=== PATIENT | female | born 1960 | race Asian ===

== ENCOUNTER 2018-11-13 06:52 | Day surgery (SDC) | payer BC ==
[2018-11-13] MEDS ORDERED: MIDAZOLAM 1 MG/ML 2 ML INJ ×2 (08:50)
[2018-11-13] MEDS ORDERED: FENTAnyl 50 MCG/ML VIAL (08:50)
== END 2018-11-13 13:25 | disposition home or self-care (01) ==
LOC: GIL 06:52
DX: Z12.11 Encounter for screening for malignant neoplasm of colon (principal); K64.8 Other hemorrhoids; Z86.010 Personal history of colon polyps
CPT/HCPCS: 45378